=== PATIENT | female | born 2000 | race African-American/Black ===

== ENCOUNTER 2020-06-05 09:25 | Emergency (ER) | payer BC, OTHER ==
[2020-06-06 12:52] LABS: SARS-CoV-2 MS2 Positive; SARS-CoV-2 N Gene Negative; SARS-CoV-2 S Gene Negative; SARS-CoV-2 orf1ab Negative
== END 2020-06-05 09:57 | disposition home or self-care (01) ==
LOC: ERS 09:25
DX: R51 Headache (principal); R05 Cough; Z20.828 Contact with and (suspected) exposure to other viral communicable diseases
CPT/HCPCS: 87635; 99284; U0003